=== PATIENT | female | born 2000 | race African-American/Black ===

== ENCOUNTER 2022-12-16 09:57 | Inpatient (IN) | payer OTHER, SELFPAY ==
[2022-12-16] VITALS (17 sets, daily range): BP systolic 119–133; BP diastolic 67–90; PULSE 85–162; RESP 18–30; TEMP 36.9–37.9; O2SAT 96–100
--- NOTE | ~2022-12-16 | XR_ITS ---
EXAMINATION: XR chest 1V portable INDICATION: Fever TECHNIQUE: Portable AP chest at 0528 hours COMPARISON: 12/16/2022 FINDINGS: The lung volumes are low. No pleural effusion or pneumothorax. The lungs are free of acute opacities. The cardiomediastinal silhouette is normal. IMPRESSION: 1. No acute cardiopulmonary abnormality. Reviewed, dictated and finalized at location A.
--- NOTE | ~2022-12-16 | XR_ITS ---
EXAMINATION: XR chest 1V portable DATE: 12/16/2022 14:50 INDICATION: Aspiration. TECHNIQUE: A single frontal view of the chest was obtained. COMPARISON: None. FINDINGS: The chest demonstrates clear lungs without pneumonia, pleural effusion, or pneumothorax. Th e heart size is normal. IMPRESSION: 1. No acute cardiopulmonary disease. Reviewed, dictated and finalized at location E.
--- NOTE | ~2022-12-16 | CT_ITS ---
Non-contrast Head CT History: Altered mental status Technique: Axial non-contrast imaging of the brain was performed. Dose reduction technique was used on this scan by utilizing automated exposure control and iterative reconstruction technique. The dose -length product (DLP) was 605.33 mGy-cm. Findings: There is no evidence of intracranial hemorrhage, mass lesion, or acute infarct. Brain par enchyma appears normal. The ventricles and subarachnoid spaces are normal in size. The calvarium ap pears normal. The visualized paranasal sinuses and mastoid air cells are clear. Impression: No significant abnormality seen. Reviewed, dictated and finalized at location . Impression: No significant abnormality seen.
--- NOTE | 2022-12-16 10:00 | ECG_ITS ---
Measurements Intervals [place] Rate: 160 P: 42 DE: 96 QRS: 79 QRSD: 73 T: 45 QT: 296 QTc: 483 Interpretive Statements SINUS TACHYCARDIA WITH SHORT DE INTERVAL NONSPECIFIC ST & T-WAVE ABNORMALITY ABNORMAL RHYTHM ECG NO PREVIOUS ECG AVAILABLE FOR COMPARISON Electronically Signed On 12-16-2022 11:57:54 CDT by Ryan Schafer M.D.
[2022-12-16] MEDS: SODIUM CHLORIDE 0.9% IV 1,000 ML 999 ML IV CONT (10:16)
--- NOTE | 2022-12-16 10:17 | PC.NURSE ---
Father states pt has episodes of syncope this year and had multiple cardiac work ups with nothing found. Father states the symptoms maybe associated with not eating. Mother and father states pt may have had the first seizure before mom's arrival. Unsure due to poor historians.
--- NOTE | 2022-12-16 10:30 | ED.GENADULT ---
HPI - General Adult General Chief complaint: Seizure Stated complaint: SEIZURE ? Time Seen by Provider: 12/16/22 10:00 History of Present Illness HPI narrative: 22-year-old female presented the emergency department for evaluation of multiple seizures today. This morning the patient's brother called mother and told her that he suspected the patient was having a seizure. When the mother arrived home the patient appeared to have a second seizure. Patient has no prior history of seizures. Mother states that she is her only lasted a few minutes but does describe tonic-clonic movements with sonorous respirations. Mother is unsure how long the seizure lasted because she was on the phone with EMS. When EMS arrived patient had no seizure activity but patient was postictal. They state the patient's postictal phase has been improving. Upon arrival to the ED patient is aware that she is in [place] and who her parents are but patient is still confused and is not fully verbal at this time. Patient was also tachycardic with a heart rate into the 170s Related Data Home Medications Medication Instructions Recorded Confirmed No Home Medications 12/16/22 12/16/22 Allergies Allergy/AdvReac Type Severity Reaction Status Date / Time No Known Allergies Allergy Verified 12/16/22 10:15 Review of Systems Review of Systems: All systems reviewed & are unremarkable except as noted in HPI and below PMFSH Social History Social History (Updated 12/16/22 @ 14:00 by Simeon Hair MD) Social History: Denies smoking alcohol use and drug use at this time. Admits to using marijuana in the past. Works in a warehouse Smoking status: Never smoker Alcohol intake: never Substance use: never Substance use type: does not use Spiritual care concerns: No Exam Narrative: APPEARANCE: Confused appearing. HEAD: normocephalic, atraumatic. EYES: PERRLA/EOMI, conjunctivae clear. NOSE: Normal no drainage EARS:TMS clear with good light reflex. THROAT: Pharynx clear, no exudate. NECK: Supple. No adenopathy, no masses. RESPIRATORY: Airway patent, respirations nonlabored. Clear to auscultation bilaterally, no rales, rhonchi, wheezing. CARDIOVASCULAR: Regular rate and rhythm without murmurs rubs or gallops. ABDOMINAL: Soft, nontender, nondistended, normal bowel sounds MUSCULOSKELETAL: Moves all extremities. Strength/ROM intact, No edema, No calf tenderness. NEURO: Alert but confused. Cranial nerves II through XII intact. Grossly intact SKIN: Warm, dry. Normal Color Course Course Emergency Course: 22-year-old female presenting for evaluation of seizure. Case was discussed with Dr. Case and due to the concern for multiple seizures today she was comfortable with the plan to start a 20 mL/kg Keppra loading dose. Patient's heart rate was in the 170s when she arrived to the ED. Patient was treated with IV fluids and did have a significant improvement of her heart rate. Patient did have pink residue on her lips and on her chest after emesis. Ultimately patient did admit that she did take Benadryl and family did provide a suicide note along with an empty bottle of Benadryl. Benadryl overdose does match her clinical findings of tachycardia, dry mouth and seizures. Family was updated on the results of the work-up and plan for admission. At time of admission patient's heart rate had improved. Case was discussed with the sergeant at arms and patient was admitted to the ICU. Case was also discussed with the hospitalist and patient was accepted for admission. Vital Signs Vital signs: Vital Signs Temperature 98.5 F 12/16/22 09:57 Pulse Rate 162 H 12/16/22 09:57 Respiratory Rate 30 H 12/16/22 09:57 Blood Pressure 121/73 12/16/22 09:57 Pulse Oximetry 96 12/16/22 09:57 Oxygen Delivery Room Air 12/16/22 09:57 Temperature 100.3 F H 12/16/22 18:00 Pulse Rate 99 12/16/22 18:00 Respiratory Rate 20 12/16/22 18:00 Blood Pressu
[2022-12-16 10:31] LABS: Basophils Percent Auto 0.2 % (0.2-1.2); Hematocrit 42.3 % (37.0-47.0); Hemoglobin 13.3 g/dL (12.0-15.0); Immature Granulocyte Absolute 0.06 K/mm3 (0.00-0.031); Immature Granulocyte Percent A 0.3 % (0-0.5); Lymphocytes Absolute Auto 1.23 K/mm3 (0.9-3.2); Mean Corpuscular HGB Conc 31.4 g/dl (32-36); Mean Corpuscular Hemoglobin 23.3 pg (26-34); Mean Corpuscular Volume 74.2 fl (80-100); Mean Platelet Volume 12.1 fl (7.4-10.4); Monocytes Absolute Auto 0.6 K/mm3 (0.1-0.6); Monocytes Percent Auto 3.5 % (2.6-8.5); Neutrophils Absolute Auto 15.5 K/mm3 (1.3-6.7); Platelet Count Result 399 k/mm3 (150-375); Red Cell Distribution Width 15.2 % (11.5-14.5); White Blood Count 17.5 K/mm3 (4.5-10.0)
[2022-12-16 10:32] LABS: Alveolar/Arterial O2 Gradient 67.4 mmHg; Base Excess ABG -8.6 mEq/l (+/-2.0); Fractional Inspired Oxygen 21 %; HCO3 ABG 15.5 mEq/l (22.0-26.0); PCO2 ABG 28.5 mmHg (35.0-45.0); Total Hemoglobin 13.7 g/dL (12.0-18.0); pH ABG 7.352 (7.350-7.450)
[2022-12-16 10:34] LABS: PO2 ABG 48.2 mmHg (80.0-100.0)
[2022-12-16 10:35] LABS: Modified Allen's Test Pass; Oxygen Saturation ABG 82.9 % (95.0-100.0); Oxyhemoglobin 83.3 % THb (90.0-100.0); Site Drawn RIGHT RADIAL
[2022-12-16 10:41] LABS: Acetaminophen < 10 ug/mL (10-30); Ethanol < 10 mg/dL (<10); INR 1.1; Partial Thromboplastin Time 27.7 SECONDS (22.3-36.8); Prothrombin Time 14.4 Seconds (11.1-14.7); Salicylate < 1.0 mg/dL (2-20)
[2022-12-16 10:52] LABS: Alanine Aminotransferase 51 U/L (6-35); Albumin Level 5.2 g/dL (3.5-5.1); Alkaline Phosphatase 90 U/L (38-126); Anion Gap 25 mmol/L (8-16); Aspartate Amino Transferase 40 U/L (14-36); Bilirubin,Total 0.5 mg/dL (0.2-1.3); Blood Urea Nitrogen 7 mg/dL (7-17); Calcium 9.7 mg/dL (8.4-10.2); Carbon Dioxide 13 mmol/L (22-30); Chloride 104 mmol/L (98-107); Estimated CRCL calculation 90 ml/min; Estimated Glomerular Filt Rate > 60; Glucose 141 mg/dL (65-110); Magnesium 2.1 mg/dL (1.6-2.3); Potassium 3.9 mmol/L (3.4-5.0); Sodium 142 mmol/L (137-145)
[2022-12-16 11:04] LABS: Ovalocytes 1+ (NORMAL); Platelet Estimate Adequate (Adequate)
[2022-12-16 11:08] LABS: Anisocytosis 1+ (NORMAL); Crenated RBC 2+ (NORMAL); Poikilocytosis 2+ (NORMAL)
[2022-12-16 11:09] LABS: Amphetamine Screen Urine Negative (Negative); Appearance Urine Clear (Clear); Bacteria Urine None Seen /hpf; Barbiturate Screen Urine Negative (Negative); Benzodiazepines Screen Urine Negative (Negative); Bilirubin Urine Negative (Negative); Blood Urine Negative (Negative); Cannabinoid Screen Urine Negative (Negative); Cocaine Screen Urine Negative (Negative); Color Urine Yellow (Yellow); Glucose Urine UA Negative (Negative); Ketones Urine Trace mg/dL (Negative); Leukocyte Esterase Ur Negative LEU/UL (Negative); Methadone Screen Urine Negative (Negative); Nitrate Urine Negative (Negative); Non Pathogenic Casts 0-2; Opiate Screen Urine Negative (Negative); Phencyclidine Screen Urine Negative (Negative); Protein Urine 2+ mg/dL (Negative); RBC Urine 0-2 /hpf (0-2); Squamous Epithelial Cell Urine None seen /hpf (Few); Urobilinogen Urine 0.2 mg/dL (<2.0); WBC Urine 0-5 /hpf
[2022-12-16 11:09] LABS: Schistocytes Rare (NORMAL)
[2022-12-16 11:10] LABS: Add Urine Microscopic? YES
--- NOTE | 2022-12-16 11:20 | PC.NURSE ---
report received from Anais ZAVALETA at this time
[2022-12-16 11:30] LABS: Lactic Acid Reflex 4.1 mmol/L (0.7-2.0)
--- NOTE | 2022-12-16 12:17 | PC.NURSE ---
patient found to be incontinent at this time. Complete linen bed changed at this time. Small pink flakes and fragments found all over bed and in patient's hair. Dr Kelly notified.
--- NOTE | 2022-12-16 13:06 | PC.NURSE ---
Patient's father told this nurse that an empty bottle of benadryl was found at patient's residence. Patient admits to taking something to get high but won't admit to what substance was ingested. patient denies SI/HI or trying to harm herself in any way. Dr Kelly notified
--- NOTE | 2022-12-16 13:41 | PM.IMHP ---
H&P: HPI History of Present Illness Date/Time: 12/16/22 14:45 Chief Complaint: Seizure-like activity. Narrative: This is a 22-year-old female with no reported medical history who presented to the emergency department via EMS from home for evaluation of seizure-like activity. The patient is somnolent at the time my evaluation and she does answer some questions however some of the following history is obtained via a review of her electronic medical records as well as discussions with the patient's mother who is at bedside, with the patient's permission. The patient got home from work at about 20:00 last night and she seemed okay at that time. Mother went to bed and sometime this morning the patient's brother alerted the mother to the fact that the patient seemed to be having convulsions. Mother reports that the patient was lying on the couch and seemed to have vomited a pretty large amount of pink colored emesis sometime overnight. She witnessed the patient having will was described as tonic clonic like movements with sonorous respirations, lasting approximately 45 seconds. On EMS arrival she was awake and alert to self only seemed to be postictal. She has no history of seizure disorder and there was no evidence of trauma on exam. She does not drink alcohol or do drugs, according to family members. In the ED the patient admitted that she took some Benadryl in an attempt to harm herself. Father went home and found that she had spent 9 dollars at [employer] yesterday and appeared that she had purchase a bottle of generic diphenhydramine, 25 mg tablets. There were reportedly 100 tablets in the bottle and all of them were missing. Mother found a note at the patient had written at 21:22 last night, stating that she was sorry. She has no reported history of depression or suicide attempt. On arrival to the ED her blood pressure was stable, she has been persistently tachycardic, and her temperature has been as high as 100.3?. Pertinent labs include a white blood cell count of 17.5, sodium 142, potassium 3.9, carbon dioxide 13, anion gap 25, lactic acid 4.1, AST 40, ALT 51, total CK 7815. Urine drug screen was negative. Salicylate, acetaminophen, and ethyl alcohol levels were undetectable. Brain CT and chest x-ray showed no acute findings. At the time my evaluation she has no complaints but seems confused. Review of Systems Review of Systems: Unable to be obtained accurately she is confused. FORMERLY [facility], [facility] Past Medical History Medical History (Updated 12/16/22 @ 23:41 by Cherry Juarez PA-C) No pertinent past medical history Surgical History Surgical History (Updated 12/16/22 @ 23:34 by Cherry Juarez PA-C) No history of previous surgery Family History Family History (Updated 12/16/22 @ 23:34 by Cherry Juarez PA-C) Other Family history unknown Social History Social History (Updated 12/16/22 @ 23:34 by Cherry Juarez PA-C) Social History: Lives with father in [place]. 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 Admits to using marijuana in the past. Spiritual care concerns: No Meds Home Medications and Allergies Home Medications Medication Instructions Recorded Confirmed Type No Home Medications 12/16/22 12/16/22 History Allergies Allergy/AdvReac Type Severity Reaction Status Date / Time No Known Allergies Allergy Verified 12/16/22 10:15 Vital Signs Vital Signs - 24 hr 12/16/22 09:57 12/16/22 10:07 12/16/22 11:26 Temperature 98.5 F Pulse Rate 162 H 158 H 113 H Respiratory Rate 30 H 18 Blood Pressure 121/73 133/76 Pulse Oximetry 96 97 Oxygen Delivery Room Air 12/16/22 10:09 12/16/22 10:24 12/16/22 10:57 Temperature Pulse Rate 157 H 155 H 128 H Respiratory Rate Blood Pressure 132/75 Pulse Oximetry Oxygen Delivery 12/16/22 11:00 12/16/22 11:57 12/16/22 12:00 Temperature Pulse Rate 133 H 110 H 108 H Respiratory Rate
--- NOTE | 2022-12-16 14:00 | WPDCNINT ---
Assessment and Plan Assessment and plan (1) Intentional diphenhydramine poisoning: Code(s): T45.0X2A - Poisoning by antiallergic and antiemetic drugs, intentional self-harm, initial encounter Status: Acute Assessment and Plan: Patient admits to taking 30 pills of Benadryl although empty 100 pill bottle was found in her car along with a note that appears to be a suicide note. The timing of pill ingestion is unknown although the note was timed at 9:22 p.m. last night. She presented with clinical picture which is consistent with diphenhydramine poisoning as she has dry mouth, mydriasis, tachycardia and seizures Continue supportive care IV fluids Patient received Keppra for seizures which will be continued EKG reviewed and shows normal QTC and QRS Suicide and seizure precaution (2) Generalized seizure: Code(s): R56.9 - Unspecified convulsions Status: Acute Assessment and Plan: Secondary to diphenhydramine toxicity Patient was given Keppra loading dose in the ER be continued Head CT was negative Neurology was consulted in the ER Seizure precautions P.r.n. Ativan IV fluids NPO (3) Encephalopathy: Code(s): G93.40 - Encephalopathy, unspecified Status: Acute Assessment and Plan: Patient is awake alert but confused Likely secondary to Benadryl and postictal from seizures Avoid sedatives Monitor Head CT was unremarkable (4) Lactic acidosis: Code(s): E87.20 - Acidosis, unspecified Status: Acute Assessment and Plan: Likely secondary to seizures Patient received IV fluid bolus Recheck level after fluid bolus (5) Suicide attempt: Code(s): T14.91XA - Suicide attempt, initial encounter Status: Acute Assessment and Plan: Suicide precautions and one-to-one sitter Will have Psychiatry evaluate once medical issues are resolved (6) Hypoxia: Code(s): R09.02 - Hypoxemia Status: Acute Assessment and Plan: Initial ABG showed hypoxia. Patient currently on room air Will check chest x-ray to evaluate for any aspiration Plan DVT prophylaxis -SCDs Code Status - Full Code Patient's father updated at bedside Total Critical Care Time - 35 minutes Due to a high probability of clinically significant, life threatening deterioration, the patient required my highest level of preparedness to intervene emergently and I personally spent this critical care time directly and personally managing the patient. This critical care time included obtaining a history; examining the patient; pulse oximetry; ordering and review of studies; arranging urgent treatment with development of a management plan; evaluation of patient's response to treatment; frequent reassessment; and discussions with other providers. It was exclusive of separately billable procedures and treating other patients and teaching time. Please see Assessment and Plan section and the rest of the note for further information on patient assessment and treatment Press Puller Consult Note Consult date: 12/16/22 Reason for consult: Seizures, Benadryl overdose, suicide attempt HPI: Kate Nichole is a 22 year old female with no significant past medical history who was brought to ER with seizures. Her younger brother found her on the floor this morning with foam on the side of her mouth and called her mother. Her mother witnessed a generalized tonic-clonic seizure and she called 911. When EMS arrived patient did not had any active seizures but was confused postictal which improved by the time patient was brought to ER. Patient in ER was awake but confused. She was tachycardic and was given IV fluids. After consultation with Neurology she was given Keppra loading dose. Her mother found empty bottle of 100 pills of 25 mg Benadryl in her car along with note that appears to be suicide note and was timed at 9:22 p.m. last night. Patient was apparently at baseline yesterday. Initially during my interv
[2022-12-16 14:06] LABS: Reflex Lactic Acid Yes or No Add Lactic
[2022-12-16 14:38] LABS: Lactic Acid 1.8 mmol/L (0.7-2.0)
[2022-12-16 14:51] LABS: Anion Gap 11 mmol/L (8-16); Blood Urea Nitrogen 7 mg/dL (7-17); Carbon Dioxide 21 mmol/L (22-30); Chloride 107 mmol/L (98-107); Estimated CRCL calculation 101 ml/min; Estimated Glomerular Filt Rate > 60; Glucose 86 mg/dL (65-110); Potassium 3.9 mmol/L (3.4-5.0); Sodium 139 mmol/L (137-145)
[2022-12-16 14:59] LABS: Creatine Kinase 7815 U/L (30-135)
--- NOTE | 2022-12-16 15:00 | ADMGEN ---
This patient, Kate Nichole, was admitted to Intensive Care Unit-3. Patient/family oriented to hospital policies and general routines including ID bracelet, bed and alarms, visiting hours, pain management, procedures, bathroom and other care routines, personal items, smoking policy, room service/diet, and visiting hours. Information on how to activate the Rapid Response Team has been discussed. Patient/Family are encouraged to report perceived risks to care and to ask questions if they do not understand what they are told or what they should do.
[2022-12-16] MEDS: LACTATED RINGERS 1,000 ML 100 ML IV CONT (15:45)
[2022-12-16] MEDS: LACTATED RINGERS 1,000 ML 999 ML IV CONT (15:55)
[2022-12-16 17:23] LABS: Basophils Percent Auto 0.1 % (0.2-1.2); Eosinophils Percent Auto 0.1 % (0-4.4); Hematocrit 35.4 % (37.0-47.0); Hemoglobin 11.2 g/dL (12.0-15.0); Immature Granulocyte Absolute 0.06 K/mm3 (0.00-0.031); Immature Granulocyte Percent A 0.4 % (0-0.5); Lymphocytes Absolute Auto 2.02 K/mm3 (0.9-3.2); Lymphocytes Percent Auto 11.8 % (18.3-44.2); Mean Corpuscular HGB Conc 31.6 g/dl (32-36); Mean Corpuscular Hemoglobin 23.1 pg (26-34); Mean Platelet Volume 12.6 fl (7.4-10.4); Monocytes Absolute Auto 1.1 K/mm3 (0.1-0.6); Monocytes Percent Auto 6.3 % (2.6-8.5); Neutrophils Absolute Auto 13.9 K/mm3 (1.3-6.7); Neutrophils Percent Auto 81.3 % (45.5-73.1); Platelet Count Result 317 k/mm3 (150-375); Red Blood Count 4.85 M/mm3 (4.2-5.4); Red Cell Distribution Width 14.6 % (11.5-14.5); White Blood Count 17.1 K/mm3 (4.5-10.0)
[2022-12-16 17:26] LABS: Lactic Acid Reflex 1.5 mmol/L (0.7-2.0)
[2022-12-16 17:50] LABS: Alanine Aminotransferase 43 U/L (6-35); Albumin Level 4.3 g/dL (3.5-5.1); Alkaline Phosphatase 78 U/L (38-126); Anion Gap 8 mmol/L (8-16); Aspartate Amino Transferase 156 U/L (14-36); Bilirubin,Total 0.8 mg/dL (0.2-1.3); Blood Urea Nitrogen 6 mg/dL (7-17); Calcium 9.3 mg/dL (8.4-10.2); Carbon Dioxide 25 mmol/L (22-30); Chloride 107 mmol/L (98-107); Estimated CRCL calculation 103 ml/min; Estimated Glomerular Filt Rate > 60; Glucose 84 mg/dL (65-110); Magnesium 1.9 mg/dL (1.6-2.3); Phosphorus 4.5 mg/dL (2.5-4.5); Potassium 3.5 mmol/L (3.4-5.0); Sodium 140 mmol/L (137-145)
[2022-12-16 18:09] LABS: Anisocytosis 1+ (NORMAL); Microcytosis 1+ (NORMAL); Platelet Estimate Adequate (Adequate); Schistocytes None Seen (NORMAL)
[2022-12-16 18:10] LABS: Ovalocytes 1+ (NORMAL)
[2022-12-16 18:22] LABS: Creatine Kinase > 16000 U/L (30-135)
[2022-12-16] MEDS: KCL 20 MEQ/0.45% NS 1,000 ML 125 ML IV CONT (19:16)
[2022-12-16] MEDS: levETIRAcetam 500MG/NACL 100ML 500 MG/100 ML BAG 400 MG IVPB (20:33)
[2022-12-17] VITALS (19 sets, daily range): BP systolic 104–129; BP diastolic 56–75; PULSE 79–111; RESP 14–21; TEMP 36.8–38.2; O2SAT 97–100
[2022-12-17] MEDS: KCL 20 MEQ/0.45% NS 1,000 ML 125 ML IV CONT (03:35)
[2022-12-17 03:37] LABS: Basophils Absolute Auto 0.1 K/mm3 (0.0-0.1); Basophils Percent Auto 0.4 % (0.2-1.2); Eosinophils Absolute Auto 0.1 K/mm3 (0-0.3); Eosinophils Percent Auto 0.7 % (0-4.4); Hematocrit 32.4 % (37.0-47.0); Hemoglobin 10.5 g/dL (12.0-15.0); Immature Granulocyte Absolute 0.05 K/mm3 (0.00-0.031); Immature Granulocyte Percent A 0.4 % (0-0.5); Lymphocytes Absolute Auto 2.66 K/mm3 (0.9-3.2); Lymphocytes Percent Auto 21.9 % (18.3-44.2); Mean Corpuscular HGB Conc 32.4 g/dl (32-36); Mean Corpuscular Hemoglobin 23.9 pg (26-34); Mean Corpuscular Volume 73.6 fl (80-100); Mean Platelet Volume 12.9 fl (7.4-10.4); Monocytes Absolute Auto 0.8 K/mm3 (0.1-0.6); Monocytes Percent Auto 6.3 % (2.6-8.5); Neutrophils Absolute Auto 8.5 K/mm3 (1.3-6.7); Neutrophils Percent Auto 70.3 % (45.5-73.1); Platelet Count Result 316 k/mm3 (150-375); Red Cell Distribution Width 14.8 % (11.5-14.5); White Blood Count 12.1 K/mm3 (4.5-10.0)
[2022-12-17 04:57] LABS: Alanine Aminotransferase 48 U/L (6-35); Albumin Level 3.8 g/dL (3.5-5.1); Alkaline Phosphatase 63 U/L (38-126); Anion Gap 4 mmol/L (8-16); Aspartate Amino Transferase 189 U/L (14-36); Bilirubin,Total 0.9 mg/dL (0.2-1.3); Blood Urea Nitrogen 9 mg/dL (7-17); Calcium 8.5 mg/dL (8.4-10.2); Carbon Dioxide 26 mmol/L (22-30); Chloride 110 mmol/L (98-107); Estimated CRCL calculation 93 ml/min; Estimated Glomerular Filt Rate > 60; Glucose 79 mg/dL (65-110); Potassium 4.1 mmol/L (3.4-5.0); Sodium 140 mmol/L (137-145)
[2022-12-17 05:23] LABS: Creatine Kinase > 16000 U/L (30-135)
[2022-12-17] MEDS: LACTATED RINGERS 1,000 ML 999 ML IV CONT (05:30)
[2022-12-17 07:24] LABS: Hypochromasia 1+ (NORMAL); Microcytosis 1+ (NORMAL); Ovalocytes 1+ (NORMAL); Platelet Estimate Adequate (Adequate); Schistocytes None Seen (NORMAL)
[2022-12-17] MEDS: levETIRAcetam 500MG/NACL 100ML 500 MG/100 ML BAG 400 MG IVPB ×2 (08:23→21:56)
[2022-12-17] MEDS: LACTATED RINGERS 1,000 ML 200 ML IV CONT (08:24)
[2022-12-17 08:52] LABS: Glucose Point of Care 71 mg/dl (65-105)
--- NOTE | 2022-12-17 09:03 | WPDINTPN ---
Progress Note: A&P Assessment and Plan (1) Rhabdomyolysis: Code(s): M62.82 - Rhabdomyolysis Status: Acute Assessment and Plan: Secondary to laying on the floor Patient is symptomatic Continue IV fluids Monitor CK level (2) Intentional diphenhydramine poisoning: Qualifiers: Encounter type: initial encounter Qualified Code(s): T45.0X2A - Poisoning by antiallergic and antiemetic drugs, intentional self-harm, initial encounter Code(s): T45.0X2A - Poisoning by antiallergic and antiemetic drugs, intentional self-harm, initial encounter Status: Acute Assessment and Plan: Patient admitted to taking 30 pills of Benadryl although empty 100 pill bottle was found in her car along with a note that appears to be a suicide note. The timing of pill ingestion is unknown although the note was timed at 9:22 p.m. night before. She presented with clinical picture which is consistent with diphenhydramine poisoning as she has dry mouth, mydriasis, tachycardia and seizures Patient is clinically improved Continue supportive care IV fluids Patient received Keppra for seizures which is being continued EKG reviewed and shows normal QTC and QRS Suicide and seizure precaution (3) Generalized seizure: Code(s): R56.9 - Unspecified convulsions Status: Acute Assessment and Plan: Secondary to diphenhydramine toxicity Patient was given Keppra loading dose in the ER and was continued Head CT was negative Neurology was consulted in the ER Seizure precautions and will seizure since admission P.r.n. Ativan ordered IV fluids (4) Encephalopathy: Code(s): G93.40 - Encephalopathy, unspecified Status: Acute Assessment and Plan: Resolved patient is awake alert and oriented now Likely secondary to Benadryl and postictal from seizures Avoid sedatives Monitor Head CT was unremarkable (5) Lactic acidosis: Code(s): E87.20 - Acidosis, unspecified Status: Acute Assessment and Plan: Likely secondary to seizures Resolved with IV fluids (6) Suicide attempt: Code(s): T14.91XA - Suicide attempt, initial encounter Status: Acute Assessment and Plan: Suicide precautions and one-to-one sitter Will have Psychiatry evaluate once medical issues are resolved (7) Hypoxia: Code(s): R09.02 - Hypoxemia Status: Acute Assessment and Plan: Initial ABG showed hypoxia. Patient currently on room air chest x-ray was negative for any signs of aspiration Plan DVT prophylaxis -SCDs Code Status - Full Code Patient's father updated at bedside Advance diet Downgrade to step-down unit Incentive spirometer Subjective Date/time seen: 12/17/22 Feels better. Denies any complaint. Alert awake this morning Patient denies fever, chest pain, shortness of breath, cough, nausea vomiting, abdominal pain,, diarrhea, headache or constipation. No muscle aches joint pains no blurring of vision.. All other systems were reviewed and negative Afebrile. On room air. S sinus rhythm on the monitor Adequate urine output No seizures overnight Review of Systems Review of Systems: All systems reviewed & are unremarkable except as noted in HPI and below (HPI) Exam Narrative: General: Pt is awake alert and in NAD Lungs/Chest: Trachea central Clear BS B/L, No crackles or wheezing. Cardiac: RRR. Normal S1 S2. No murmurs Circulation: Pedal pulses are intact and symmetrical. Abdomen: Normal bowel sounds.. Soft. NT. ND. Extremities: No clubbing, cyanosis or edema. Warm : Valle in place Neurologic: Patient AO x3 follows commands. Moves all 4 extremities P pupils are equal, with round and reactive to light Skin: No Rash HEENT: Pupils are mildly dilated reactive light, dry mouth has resolved Objective Data Vital Signs Vital Signs: Vital Signs - 24 hr 12/16/22 09:57 12/16/22 10:07 12/16/22 11:26 Temperature 36.9 C Pulse Rate
--- NOTE | 2022-12-17 10:27 | ECG_ITS ---
Measurements Intervals [place] Rate: 90 P: 62 MI: 152 QRS: 69 QRSD: 76 T: 51 QT: 338 QTc: 414 Interpretive Statements SINUS RHYTHM WITH MARKED SINUS ARRHYTHMIA COMPARED TO ECG 12/16/2022 10:13:00 SINUS RHYTHM NOW PRESENT SINUS ARRHYTHMIA NOW PRESENT Electronically Signed On 12-17-2022 11:07:28 CDT by Ryan Schafer M.D.
--- NOTE | 2022-12-17 10:34 | PC.NURSE ---
Spoke with poison control and talked to Mili. Mili is requesting an ekg to see if qtc is trending down, continue keppra as needed and would request abg in AM if decides.
[2022-12-17 12:03] LABS: Glucose Point of Care 73 mg/dl (65-105)
[2022-12-17] MEDS: LACTATED RINGERS 1,000 ML 150 ML IV CONT ×2 (13:06→21:55)
--- NOTE | 2022-12-17 14:29 | WPDNEURCNPN ---
Assessment and Plan Assessment and plan (1) Seizure: Code(s): R56.9 - Unspecified convulsions Status: Acute (2) Diphenhydramine overdose: Qualifiers: Encounter type: initial encounter Injury intent: intentional self-harm Qualified Code(s): T45.0X2A - Poisoning by antiallergic and antiemetic drugs, intentional self-harm, initial encounter Code(s): T45.0X1A - Poisoning by antiallergic and antiemetic drugs, accidental (unintentional), initial encounter Status: Acute (3) Suicide attempt: Code(s): T14.91XA - Suicide attempt, initial encounter Status: Acute (4) Rhabdomyolysis: Code(s): M62.82 - Rhabdomyolysis Status: Acute Plan Ms. Nichole is a 22 year old female with no significant past medical history who had a seizure in the setting of intentional Benadryl overdose. She has not had any additional seizures since admission and her mental status is back to baseline. Seizure appears to be provoked. - No EEG is needed unless subsequent seizure were to occur - Maintenance Keppra does not need to be continued after discharge unless she were to have additional seizures Consult date: 12/17/22 Reason for consult: Seizure HPI: Kate Nichole is a 22 year old female with no significant past medical history who presented with seizure in the setting of intentional orverdose. Patient was found to be having convulsions by her brother. She also had an episode of emesis that was noted, presumably before the seizure. The entire seizure lasted about 45 seconds. EMS was called and on their arrival she was awake and oriented to only herself, and appeared to be confused. There is no prior history of seizures in patient and no family history of seizures. When patient was taken to the ED, she admitted to overdosing on Benadryl in an attempt to self harm. Father reported that she had purchased a new bottle of generic diphenhydramine (25mg tablets), and all 100 tablets were missing from the bottle. She had also written a suicide note that was found by mother. Her CK was elevated on presentation to 7815. Her UDS was negative and rest of tox screen was negative as well. CT head was normal. She has not had any additional seizures since admission. She did receive a loading dose of Keppra in the ED. She is currently receiving maintenance Keppra while admitted. CK level has been >98000 the past two days. Review of Systems Constitutional: Constitutional: Reports no additional constitutional complaints Eyes: Eyes: Reports no additional eye complaints ENT: Reports system reviewed and no additional complaints, except as documented Cardiovascular: Cardiovascular: Reports no additional cardiovascular complaints Respiratory: Respiratory: Reports no additional respiratory complaints Gastrointestinal: Gastrointestinal: Reports no additional gastrointestinal complaints Genitourinary: Genitourinary: Reports no additional female genitourinary complaints Musculoskeletal: Musculoskeletal: Reports no additional musculoskeletal complaints Integumentary/Breasts: Skin/Breast: Reports system reviewed and no additional complaints, except as docu Neurologic: Reports system reviewed and no additional complaints, except as documented Psychiatric: Psychiatric: Reports suicidal ideation PMFSH Past Medical History Medical History No pertinent past medical history Surgical History Surgical History No history of previous surgery Family History Family History Other Family history unknown Social History Social History Social History: Lives with father in [place]. 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 Admits to using marijuana in the past. Spiritual care concerns
[2022-12-17] MEDS: ACETAMINOPHEN 325 MG TABLET 650 MG PO (15:38)
--- NOTE | 2022-12-17 18:17 | PM.IMPN ---
Progress Note: A&P Assessment and Plan (1) Rhabdomyolysis: Code(s): M62.82 - Rhabdomyolysis Status: Acute Assessment and Plan: Creatine kinase >85192 secondary to seizures and laying on the floor. Renal function remains normal. UA with no blood. Continue IV fluids Monitor CK levels (2) Intentional diphenhydramine poisoning: Qualifiers: Encounter type: initial encounter Qualified Code(s): T45.0X2A - Poisoning by antiallergic and antiemetic drugs, intentional self-harm, initial encounter Code(s): T45.0X2A - Poisoning by antiallergic and antiemetic drugs, intentional self-harm, initial encounter Status: Acute Assessment and Plan: Patient admitted to taking 30 pills of Benadryl although empty 100 pill bottle was found in her car along with a note that appears to be a suicide note. The timing of pill ingestion is unknown although the note was timed at 9:22 p.m. the night before. Clinical picture consistent with diphenhydramine poisoning (retention, dry mouth, mydriasis, tachycardia, seizures) ABG 7.35/28/48 on room air on admission. Now on room air. No need to repeat ABG Patient is clinically improved Continue supportive care IV fluids for rhabdo Patient received Keppra for seizures which is being continued EKG reviewed and shows normal QTC and QRS Suicide and seizure precaution Repeat EKG tomorrow Remove Valle in am. (3) Generalized seizure: Code(s): R56.9 - Unspecified convulsions Status: Acute Assessment and Plan: Patient had 2 witnessed seizures at home. Secondary to diphenhydramine toxicity Patient was given Keppra loading dose in the ER and this was continued CT Brain was unremarkable Neurology was consulted and appreciate their input Seizure precautions Continue Keppra while hospitalized but stop as discharge unless she has further seizures P.r.n. Ativan available (4) Fever: Code(s): R50.9 - Fever, unspecified Status: Acute Assessment and Plan: Low grade fever on admission that has persisted today. CXR clear on admission. UA showing proteinuria but probably related to the seizure o/w urine clear. WBC 17K on admission but trending down now. She was obtunded with seizure so consider aspiration. Will repeat CXR. (5) Encephalopathy: Code(s): G93.40 - Encephalopathy, unspecified Status: Acute Assessment and Plan: Patient was altered on admission. Brain CT showing no acute intracranial abnormalities Patient is alert and oriented now [place] related to being post-ictal from the seizures and from the Benadryl Resolved. Continue to monitor (6) Lactic acidosis: Code(s): E87.20 - Acidosis, unspecified Status: Acute Assessment and Plan: lactic acid 4.1 likely secondary to seizures. Resolved with IV fluids (7) Suicide attempt: Code(s): T14.91XA - Suicide attempt, initial encounter Status: Acute Assessment and Plan: Suicide precautions and one-to-one sitter Care coordination to arrange for inpatient psychiatric placement once stable (8) Hypoxia: Code(s): R09.02 - Hypoxemia Status: Acute Assessment and Plan: Initial ABG showed hypoxia. Patient currently on room air chest x-ray was negative for any signs of aspiration Repeat CXR since still having fever. Plan DVT prophylaxis -SCDs Code Status - Full Code Diet - regular Subjective Date/time seen: 12/17/22 18:17 Interval history: 22yo healthy female here for intentional Benadryl overdose and provoked seizures. She admits to taking excessive Benadryl (up to 30 tablets) in a suicide attempt because she has been 'feeling sad'. No prior suicide attempts. Did tell her parents and her doctor. They have been trying to get her an appointment with a counselor. Urine retention of 900mL yesterday. Exam Narrative: Tm 100.7 100.2 110/66 107 17 100% ra Gen - NARD Chest - CTA
[2022-12-18] VITALS (14 sets, daily range): BP systolic 99–125; BP diastolic 53–83; PULSE 67–111; RESP 14–20; TEMP 37.1–37.3; O2SAT 97–100
[2022-12-18 04:02] LABS: Alanine Aminotransferase 50 U/L (6-35); Albumin Level 3.5 g/dL (3.5-5.1); Alkaline Phosphatase 75 U/L (38-126); Anion Gap 4 mmol/L (8-16); Aspartate Amino Transferase 136 U/L (14-36); Bilirubin,Total 0.5 mg/dL (0.2-1.3); Blood Urea Nitrogen 9 mg/dL (7-17); Calcium 8.4 mg/dL (8.4-10.2); Carbon Dioxide 27 mmol/L (22-30); Chloride 105 mmol/L (98-107); Estimated CRCL calculation 134 ml/min; Estimated Glomerular Filt Rate > 60; Glucose 99 mg/dL (65-110); Magnesium 1.8 mg/dL (1.6-2.3); Sodium 136 mmol/L (137-145)
[2022-12-18 04:50] LABS: Basophils Percent Auto 0.5 % (0.2-1.2); Eosinophils Absolute Auto 0.3 K/mm3 (0-0.3); Eosinophils Percent Auto 3.7 % (0-4.4); Hematocrit 33.4 % (37.0-47.0); Hemoglobin 10.4 g/dL (12.0-15.0); Immature Granulocyte Absolute 0.02 K/mm3 (0.00-0.031); Immature Granulocyte Percent A 0.2 % (0-0.5); Immature Platelet Fraction Pct 5.3 % (0.9-11.2); Lymphocytes Absolute Auto 2.55 K/mm3 (0.9-3.2); Lymphocytes Percent Auto 28.9 % (18.3-44.2); Mean Corpuscular HGB Conc 31.1 g/dl (32-36); Mean Corpuscular Hemoglobin 23.1 pg (26-34); Mean Corpuscular Volume 74.1 fl (80-100); Mean Platelet Volume 13.1 fl (7.4-10.4); Monocytes Absolute Auto 0.5 K/mm3 (0.1-0.6); Monocytes Percent Auto 5.9 % (2.6-8.5); Neutrophils Absolute Auto 5.4 K/mm3 (1.3-6.7); Neutrophils Percent Auto 60.8 % (45.5-73.1); Platelet Count Result 237 k/mm3 (150-375); Red Blood Count 4.51 M/mm3 (4.2-5.4); Red Cell Distribution Width 14.6 % (11.5-14.5); White Blood Count 8.8 K/mm3 (4.5-10.0)
[2022-12-18 04:56] LABS: Creatine Kinase 11821 U/L (30-135)
[2022-12-18 05:55] LABS: Anisocytosis 1+ (NORMAL); Ovalocytes 1+ (NORMAL); Platelet Estimate Adequate (Adequate); Schistocytes None Seen (NORMAL)
[2022-12-18] MEDS: LACTATED RINGERS 1,000 ML 150 ML IV CONT ×3 (06:11→18:31)
--- NOTE | 2022-12-18 07:00 | ECG_ITS ---
Measurements Intervals [place] Rate: 76 P: 57 MA: 165 QRS: 53 QRSD: 85 T: 31 QT: 350 QTc: 396 Interpretive Statements SINUS RHYTHM WITH SINUS ARRHYTHMIA COMPARED TO ECG 12/17/2022 10:45:16 NO SIGNIFICANT CHANGES Electronically Signed On 12-18-2022 12:16:48 CDT by Ryan Schafer M.D.
[2022-12-18] MEDS: levETIRAcetam 500MG/NACL 100ML 500 MG/100 ML BAG 100 MG IVPB (08:17)
--- NOTE | 2022-12-18 13:41 | PC.NURSE ---
Spoke with Kimmie at poison control, gave updated labs and updated ekg results. Kimmie is signing off on case. Case closed.
--- NOTE | 2022-12-18 18:03 | PM.IMPN ---
Progress Note: A&P Assessment and Plan (1) Rhabdomyolysis: Code(s): M62.82 - Rhabdomyolysis Status: Acute Assessment and Plan: Creatine kinase >96752 secondary to seizures and laying on the floor. Renal function remains normal. UA with no blood. Elevated AST/ALT related to rhabdomyolysis TCK level trending down now Continue IV fluids Continue to monitor CK levels and LFTs (2) Intentional diphenhydramine poisoning: Qualifiers: Encounter type: initial encounter Qualified Code(s): T45.0X2A - Poisoning by antiallergic and antiemetic drugs, intentional self-harm, initial encounter Code(s): T45.0X2A - Poisoning by antiallergic and antiemetic drugs, intentional self-harm, initial encounter Status: Acute Assessment and Plan: Patient admitted to taking 30 pills of Benadryl although empty 100 pill bottle was found in her car along with a note that appears to be a suicide note. The timing of pill ingestion is unknown although the note was timed at 9:22 p.m. the night before. Clinical picture consistent with diphenhydramine poisoning (retention, dry mouth, mydriasis, tachycardia, seizures) ABG 7.35/28/48 on room air on admission. Now on room air. No need to repeat ABG EKG reviewed and shows normal QTC and QRS; repeat EKG again showing normal QTc and QRS IV fluids for rhabdo Patient received Keppra for seizures which is being continued Suicide and seizure precaution Valle removed and voiding well now. Patient is clinically improved Continue supportive care (3) Generalized seizure: Code(s): R56.9 - Unspecified convulsions Status: Acute Assessment and Plan: Patient had 2 witnessed seizures at home. Secondary to diphenhydramine toxicity Patient was given Keppra loading dose in the ER and continued CT Brain was unremarkable Neurology was consulted and appreciate their input Seizure precautions Continue Keppra while hospitalized but stop as discharge unless she has further seizures P.r.n. Ativan available (4) Fever: Code(s): R50.9 - Fever, unspecified Status: Acute Assessment and Plan: She was having low grade fever. CXR clear on admission. UA showing proteinuria but probably related to the seizure o/w urine clear. WBC 17K on admission but WBC normal now. She was obtunded with seizure so we considered aspiration PNA but repeat CXR still clear. Fever free x 24 hours now. Follow. (5) Encephalopathy: Code(s): G93.40 - Encephalopathy, unspecified Status: Acute Assessment and Plan: Patient was altered on admission. Brain CT showing no acute intracranial abnormalities Patient is alert and oriented now [place] related to being post-ictal from the seizures and from the Benadryl Resolved. Continue to monitor (6) Lactic acidosis: Code(s): E87.20 - Acidosis, unspecified Status: Acute Assessment and Plan: lactic acid 4.1 likely secondary to seizures. Resolved with IV fluids (7) Suicide attempt: Code(s): T14.91XA - Suicide attempt, initial encounter Status: Acute Assessment and Plan: Suicide precautions and one-to-one sitter Care coordination to arrange for inpatient psychiatric placement once TCK level improved (8) Hypoxia: Code(s): R09.02 - Hypoxemia Status: Acute Assessment and Plan: Initial ABG showed hypoxia related to above. chest x-ray was negative for any signs of aspiration Repeat CXR remains clear Patient currently on room air. Resolved Plan DVT prophylaxis -SCDs Code Status - Full Code Diet - regular Subjective Date/time seen: 12/18/22 18:03 Interval history: 22yo healthy female here for intentional Benadryl overdose and provoked seizures. No issues overnight. Valle out and voiding normally. No CP, SOB. No n/v. No abd or back pain. Exam Narrative: AF 98.8 99/53 86 17 100% ra Gen - NARD Chest - CTA bilaterally, n
[2022-12-18] MEDS: levETIRAcetam 500MG/NACL 100ML 500 MG/100 ML BAG 400 MG IVPB (21:04)
[2022-12-19] VITALS (15 sets, daily range): BP systolic 112–121; BP diastolic 58–80; PULSE 15–107; RESP 14–70; TEMP 36.6–37.3; O2SAT 95–100
[2022-12-19] MEDS: LACTATED RINGERS 1,000 ML 150 ML IV CONT ×3 (02:10→15:26)
[2022-12-19 04:40] LABS: Alanine Aminotransferase 59 U/L (6-35); Albumin Level 3.3 g/dL (3.5-5.1); Alkaline Phosphatase 69 U/L (38-126); Anion Gap 3 mmol/L (8-16); Aspartate Amino Transferase 111 U/L (14-36); Bilirubin,Total 0.5 mg/dL (0.2-1.3); Blood Urea Nitrogen 5 mg/dL (7-17); Calcium 8.1 mg/dL (8.4-10.2); Carbon Dioxide 28 mmol/L (22-30); Chloride 105 mmol/L (98-107); Estimated CRCL calculation 136 ml/min; Estimated Glomerular Filt Rate > 60; Glucose 91 mg/dL (65-110); Magnesium 1.6 mg/dL (1.6-2.3); Potassium 3.7 mmol/L (3.4-5.0); Sodium 136 mmol/L (137-145)
[2022-12-19 04:59] LABS: Creatine Kinase 6614 U/L (30-135)
[2022-12-19] MEDS: levETIRAcetam 500MG/NACL 100ML 500 MG/100 ML BAG 400 MG IVPB (08:18)
--- NOTE | 2022-12-19 17:34 | PM.IMPN ---
Progress Note: A&P Assessment and Plan (1) Rhabdomyolysis: Code(s): M62.82 - Rhabdomyolysis Status: Acute Assessment and Plan: Creatine kinase >31251 secondary to seizures and laying on the floor. Renal function remains normal. UA with no blood. Elevated AST/ALT related to rhabdomyolysis TCK level and LFTs trending down now Continue IV fluids Continue to monitor CK levels and LFTs (2) Intentional diphenhydramine poisoning: Qualifiers: Encounter type: initial encounter Qualified Code(s): T45.0X2A - Poisoning by antiallergic and antiemetic drugs, intentional self-harm, initial encounter Code(s): T45.0X2A - Poisoning by antiallergic and antiemetic drugs, intentional self-harm, initial encounter Status: Acute Assessment and Plan: Patient admitted to taking 30 pills of Benadryl although empty 100 pill bottle was found in her car along with a note that appears to be a suicide note. The timing of pill ingestion is unknown although the note was timed at 9:22 p.m. the night before. Clinical picture consistent with diphenhydramine poisoning (retention, dry mouth, mydriasis, tachycardia, seizures) ABG 7.35/28/48 on room air on admission. Now on room air. No need to repeat ABG EKG reviewed and shows normal QTC and QRS; repeat EKG again showing normal QTc and QRS IV fluids for rhabdo Patient received Keppra for seizures which is being continued Suicide and seizure precaution Valle removed and voiding well now. Patient is clinically improved Continue supportive care (3) Generalized seizure: Code(s): R56.9 - Unspecified convulsions Status: Acute Assessment and Plan: Patient had 2 witnessed seizures at home. Secondary to diphenhydramine toxicity Patient was given Keppra loading dose in the ER and continued CT Brain was unremarkable Neurology was consulted and appreciate their input Seizure precautions Continue Keppra while hospitalized but stop as discharge unless she has further seizures P.r.n. Ativan available (4) Fever: Code(s): R50.9 - Fever, unspecified Status: Acute Assessment and Plan: She was having low grade fever. CXR clear on admission. UA showing proteinuria but probably related to the seizure o/w urine clear. WBC 17K on admission but WBC normal now. She was obtunded with seizure so we considered aspiration PNA but repeat CXR still clear. Fever free x 48 hours now. Follow. (5) Encephalopathy: Code(s): G93.40 - Encephalopathy, unspecified Status: Acute Assessment and Plan: Patient was altered on admission. Brain CT showing no acute intracranial abnormalities Patient is alert and oriented now [place] related to being post-ictal from the seizures and from the Benadryl Resolved. Continue to monitor (6) Lactic acidosis: Code(s): E87.20 - Acidosis, unspecified Status: Acute Assessment and Plan: lactic acid 4.1 likely secondary to seizures. Resolved with IV fluids (7) Suicide attempt: Code(s): T14.91XA - Suicide attempt, initial encounter Status: Acute Assessment and Plan: Suicide precautions and one-to-one sitter Care coordination to arrange for inpatient psychiatric placement once TCK level improved (8) Hypoxia: Code(s): R09.02 - Hypoxemia Status: Acute Assessment and Plan: Initial ABG showed hypoxia related to above. chest x-ray was negative for any signs of aspiration Repeat CXR remains clear Patient currently on room air. Resolved Plan DVT prophylaxis -SCDs Code Status - Full Code Diet - regular Subjective Date/time seen: 12/19/22 17:34 Interval history: 22yo healthy female here for intentional Benadryl overdose and provoked seizures. No COmplaints. No KEY, chest pain, abd pain or back pain. Voiding well. Exam Narrative: AF 98.0 116/60 72 98% ra Gen - NARD Chest - CTA bilaterally, nml RR CV - RRR S
[2022-12-19] MEDS: levETIRAcetam 500 MG TABLET PO (20:12)
[2022-12-19 20:19] LABS: Glucose Point of Care 110 mg/dl (65-105)
[2022-12-20] VITALS (13 sets, daily range): BP systolic 110–138; BP diastolic 65–85; PULSE 51–110; RESP 14–18; TEMP 36.6–36.8; O2SAT 95–100
[2022-12-20] MEDS: LACTATED RINGERS 1,000 ML 150 ML IV CONT ×4 (00:57→22:24)
[2022-12-20 03:57] LABS: Basophils Percent Auto 0.4 % (0.2-1.2); Eosinophils Absolute Auto 0.3 K/mm3 (0-0.3); Eosinophils Percent Auto 3.9 % (0-4.4); Hematocrit 32.9 % (37.0-47.0); Hemoglobin 10.6 g/dL (12.0-15.0); Immature Granulocyte Absolute 0.02 K/mm3 (0.00-0.031); Immature Granulocyte Percent A 0.2 % (0-0.5); Immature Platelet Fraction Pct 5.8 % (0.9-11.2); Lymphocytes Absolute Auto 2.62 K/mm3 (0.9-3.2); Lymphocytes Percent Auto 32.3 % (18.3-44.2); Mean Corpuscular HGB Conc 32.2 g/dl (32-36); Mean Corpuscular Hemoglobin 23.6 pg (26-34); Mean Corpuscular Volume 73.1 fl (80-100); Mean Platelet Volume 13.2 fl (7.4-10.4); Monocytes Absolute Auto 0.4 K/mm3 (0.1-0.6); Monocytes Percent Auto 5.2 % (2.6-8.5); Neutrophils Absolute Auto 4.7 K/mm3 (1.3-6.7); Platelet Count Result 245 k/mm3 (150-375); Red Cell Distribution Width 14.3 % (11.5-14.5); White Blood Count 8.1 K/mm3 (4.5-10.0)
[2022-12-20 04:11] LABS: Alanine Aminotransferase 53 U/L (6-35); Albumin Level 3.5 g/dL (3.5-5.1); Alkaline Phosphatase 68 U/L (38-126); Anion Gap 5 mmol/L (8-16); Aspartate Amino Transferase 84 U/L (14-36); Bilirubin,Total 0.4 mg/dL (0.2-1.3); Blood Urea Nitrogen 4 mg/dL (7-17); Calcium 8.6 mg/dL (8.4-10.2); Carbon Dioxide 26 mmol/L (22-30); Chloride 106 mmol/L (98-107); Estimated CRCL calculation 161 ml/min; Estimated Glomerular Filt Rate > 60; Glucose 93 mg/dL (65-110); Magnesium 1.6 mg/dL (1.6-2.3); Potassium 3.7 mmol/L (3.4-5.0); Sodium 137 mmol/L (137-145)
[2022-12-20 04:55] LABS: Creatine Kinase 4110 U/L (30-135)
[2022-12-20] MEDS: levETIRAcetam 500 MG TABLET PO ×2 (08:12→20:33)
[2022-12-20] MEDS: FUROSEMIDE INJ 40 MG/4 ML VIAL 20 MG IV PUSH (08:13)
--- NOTE | 2022-12-20 12:36 | WPDNEUROPN ---
Subjective Date/time seen: 12/20/22 12:36 Interval history: 22 years old right-handed female admitted to the ICU with history of seizure in addition to the Benadryl over does on intentional basis, improving mental status, negative CT scan of the head, elevated hepatic enzymes and CPK, on exam today awake alert cooperative in no obvious acute distress follow the verbal commands appropriately his speech nor dysphasic not dysarthric not dysphonic, extraocular movements full with no nystagmus face symmetrical, tongue midline, motor examination revealed normal strength in upper and lower extremities with symmetrical reflexes. Treatment is being continued as such as she will need the repeat CPK. Objective Data Vital Signs Vital Signs: Vital Signs - 24 hr 12/19/22 14:00 12/19/22 15:23 12/19/22 16:00 Temperature 36.6 C Pulse Rate 107 H 74 15 L Respiratory Rate 18 70 H Blood Pressure 116/60 Pulse Oximetry 98 98 Oxygen Delivery Room Air 12/19/22 16:00 12/19/22 18:00 12/19/22 20:00 Temperature Pulse Rate 72 93 76 Respiratory Rate Blood Pressure Pulse Oximetry Oxygen Delivery 12/19/22 20:00 12/19/22 20:00 12/19/22 22:00 Temperature 37.2 C Pulse Rate 76 78 Respiratory Rate 21 H Blood Pressure 112/80 Pulse Oximetry 97 Oxygen Delivery Room Air 12/19/22 23:59 12/20/22 00:00 12/20/22 02:00 Temperature Pulse Rate 77 69 Respiratory Rate Blood Pressure Pulse Oximetry Oxygen Delivery Room Air 12/20/22 00:00 12/20/22 04:00 12/20/22 04:00 Temperature 36.6 C Pulse Rate 77 67 51 L Respiratory Rate 15 14 Blood Pressure 110/65 138/85 Pulse Oximetry 98 95 Oxygen Delivery 12/20/22 04:00 12/20/22 06:00 12/20/22 08:00 Temperature Pulse Rate 59 L 51 L Respiratory Rate Blood Pressure Pulse Oximetry Oxygen Delivery Room Air 12/20/22 08:00 12/20/22 09:51 Temperature 36.6 C Pulse Rate 88 90 Respiratory Rate 15 Blood Pressure 131/85 Pulse Oximetry 100 Oxygen Delivery Intake/Output Intake/Output: Intake & Output 12/17/22 12/18/22 12/19/22 12/20/22 23:59 23:59 23:59 23:59 Intake Total 3020 4300 3820 2195 Output Total 2895 2030 1000 3900 Balance 125 2270 2820 -1705 Meds/Results Medications: Active Medications Generic Name Dose Route Start Last Admin Trade Name Freq PRN Reason Stop Dose Admin Acetaminophen 650 mg 12/16/22 18:39 12/17/22 15:38 Acetaminophen 325 Mg Tablet PO 650 mg Q4H PRN Administration Fever > 100.4 Lactated Ringer's 1,000 mls @ 150 mls/hr 12/17/22 13:00 12/20/22 08:13 Lr - Lactated Ringers Iv IV CONT 150 mls/hr .Q6H40M ANTHONY Administration Levetiracetam 500 mg 12/19/22 21:00 12/20/22 08:12 Levetiracetam 500 Mg Tablet PO 500 mg Q12HR ANTHONY Administration Lorazepam 4 mg 12/16/22 13:56 Lorazepam Inj (*Crx) 2 Mg/Ml Vial IV PUSH ONCE PRN Seizure Activity Ondansetron HCl 4 mg 12/16/22 13:38 Ondansetron Inj 4 Mg/2 Ml Vial IV PUSH Q4H PRN Nausea Radiology Results: ITS Impressions Head CT 12/16/22 10:51 Impression: No significant abnormality seen. Chest X-Ray 12/18/22 07:43 IMPRESSION: 1. No acute cardiopulmonary abnormality. Labs Labs: Laboratory Results - last 24 hr 12/19/22 12/20/22 19:55 03:40 WBC 8.1 RBC 4.50 Hgb 10.6 L Hct 32.9 L MCV 73.1 L MCH 23.6 L MCHC 32.2 RDW 14.3 Plt Count 245 MPV 13.2 H Immature Gran % (Auto) 0.2 Neut % (Auto) 58.0 Lymph % (Auto) 32.3 Hall % (Auto) 5.2 Eos % (Auto) 3.9 Baso % (Auto) 0.4 Lymph # (Auto) 2.62 Hall # (Auto) 0.4 Eos # (Auto) 0.3 Baso # (Auto) 0.0 Abs Immat Gran (auto) 0.02 Absolute Neuts (auto) 4.7 Absolute Nucleated RBC 0.0 Nucleated RBC % 0.0 % Immature Plt Fraction 5.8 Sodium 137 Potassium 3.7 Chloride 106 Carbon Dioxide 26 Anion Gap 5 L BUN 4 L Creatinine 0.50 L
--- NOTE | 2022-12-20 14:00 | PM.IMPN ---
Progress Note: A&P Assessment and Plan (1) Rhabdomyolysis: Code(s): M62.82 - Rhabdomyolysis Status: Acute Assessment and Plan: Creatine kinase >92766 secondary to seizures and laying on the floor. Renal function remains normal. UA with no blood. Elevated AST/ALT related to rhabdomyolysis TCK level and LFTs trending down now Continue IV fluids Lasix IV once Continue to monitor CK levels and LFTs (2) Intentional diphenhydramine poisoning: Qualifiers: Encounter type: initial encounter Qualified Code(s): T45.0X2A - Poisoning by antiallergic and antiemetic drugs, intentional self-harm, initial encounter Code(s): T45.0X2A - Poisoning by antiallergic and antiemetic drugs, intentional self-harm, initial encounter Status: Acute Assessment and Plan: Patient admitted to taking 30 pills of Benadryl although empty 100 pill bottle was found in her car along with a note that appears to be a suicide note. The timing of pill ingestion is unknown although the note was timed at 9:22 p.m. the night before. Clinical picture consistent with diphenhydramine poisoning (retention, dry mouth, mydriasis, tachycardia, seizures) ABG 7.35/28/48 on room air on admission. Now on room air. No need to repeat ABG EKG reviewed and shows normal QTC and QRS; repeat EKG again showing normal QTc and QRS IV fluids for rhabdo Patient received Keppra for seizures which is being continued Suicide and seizure precaution Valle removed and voiding well now. Patient is clinically improved Continue supportive care (3) Generalized seizure: Code(s): R56.9 - Unspecified convulsions Status: Acute Assessment and Plan: Patient had 2 witnessed seizures at home. Secondary to diphenhydramine toxicity Patient was given Keppra loading dose in the ER and continued CT Brain was unremarkable Neurology was consulted and appreciate their input Seizure precautions Continue Keppra while hospitalized but stop as discharge unless she has further seizures P.r.n. Ativan available (4) Fever: Code(s): R50.9 - Fever, unspecified Status: Acute Assessment and Plan: She was having low grade fever. CXR clear on admission. UA showing proteinuria but probably related to the seizure o/w urine clear. WBC 17K on admission but WBC normal now. She was obtunded with seizure so we considered aspiration PNA but repeat CXR still clear. Fever free x 48 hours now. Follow. (5) Encephalopathy: Code(s): G93.40 - Encephalopathy, unspecified Status: Acute Assessment and Plan: Patient was altered on admission. Brain CT showing no acute intracranial abnormalities Patient is alert and oriented now [place] related to being post-ictal from the seizures and from the Benadryl Resolved. Continue to monitor (6) Lactic acidosis: Code(s): E87.20 - Acidosis, unspecified Status: Acute Assessment and Plan: lactic acid 4.1 likely secondary to seizures. Resolved with IV fluids (7) Suicide attempt: Code(s): T14.91XA - Suicide attempt, initial encounter Status: Acute Assessment and Plan: Suicide precautions and one-to-one sitter Care coordination to arrange for inpatient psychiatric placement once TCK level improved (8) Hypoxia: Code(s): R09.02 - Hypoxemia Status: Acute Assessment and Plan: Initial ABG showed hypoxia related to above. chest x-ray was negative for any signs of aspiration Repeat CXR remains clear Patient currently on room air. Resolved Plan DVT prophylaxis -SCDs Code Status - Full Code Diet - regular Subjective Date/time seen: 12/20/22 14:00 Interval history: 22yo healthy female here for intentional Benadryl overdose and provoked seizures. No Complaints. No CP/SOB/n/v. Exam Narrative: AF 98.0 131/85 110 15 100% ra Gen - NARD Chest - few basilar crackles. CV - RRR S1/S2. Tele showing occa
[2022-12-21] VITALS (8 sets, daily range): BP systolic 102–123; BP diastolic 59–91; PULSE 50–80; RESP 11–16; TEMP 36.7–37; O2SAT 96–100
[2022-12-21 04:16] LABS: Basophils Percent Auto 0.4 % (0.2-1.2); Eosinophils Absolute Auto 0.3 K/mm3 (0-0.3); Eosinophils Percent Auto 3.5 % (0-4.4); Hematocrit 34.1 % (37.0-47.0); Hemoglobin 10.8 g/dL (12.0-15.0); Immature Granulocyte Absolute 0.01 K/mm3 (0.00-0.031); Immature Granulocyte Percent A 0.1 % (0-0.5); Lymphocytes Absolute Auto 2.74 K/mm3 (0.9-3.2); Lymphocytes Percent Auto 33.3 % (18.3-44.2); Mean Corpuscular HGB Conc 31.7 g/dl (32-36); Mean Corpuscular Hemoglobin 23.3 pg (26-34); Mean Corpuscular Volume 73.7 fl (80-100); Monocytes Absolute Auto 0.5 K/mm3 (0.1-0.6); Monocytes Percent Auto 5.7 % (2.6-8.5); Neutrophils Absolute Auto 4.7 K/mm3 (1.3-6.7); Platelet Count Result 309 k/mm3 (150-375); Red Blood Count 4.63 M/mm3 (4.2-5.4); Red Cell Distribution Width 14.2 % (11.5-14.5); White Blood Count 8.2 K/mm3 (4.5-10.0)
[2022-12-21 04:30] LABS: Alanine Aminotransferase 48 U/L (6-35); Albumin Level 3.8 g/dL (3.5-5.1); Alkaline Phosphatase 63 U/L (38-126); Anion Gap 1 mmol/L (8-16); Aspartate Amino Transferase 66 U/L (14-36); Bilirubin,Total 0.5 mg/dL (0.2-1.3); Blood Urea Nitrogen 3 mg/dL (7-17); Calcium 8.9 mg/dL (8.4-10.2); Carbon Dioxide 32 mmol/L (22-30); Chloride 104 mmol/L (98-107); Estimated CRCL calculation 136 ml/min; Estimated Glomerular Filt Rate > 60; Glucose 89 mg/dL (65-110); Magnesium 1.6 mg/dL (1.6-2.3); Potassium 3.8 mmol/L (3.4-5.0); Sodium 137 mmol/L (137-145)
[2022-12-21 04:59] LABS: Creatine Kinase 2150 U/L (30-135)
[2022-12-21] MEDS: levETIRAcetam 500 MG TABLET PO ×2 (08:26→20:33)
[2022-12-21] MEDS: FUROSEMIDE INJ 40 MG/4 ML VIAL 20 MG IV PUSH (08:27)
[2022-12-21 08:44] LABS: Appearance Urine Clear (Clear); Bilirubin Urine Negative (Negative); Blood Urine Negative (Negative); Color Urine Yellow (Yellow); Glucose Urine UA Negative (Negative); Ketones Urine Negative (Negative); Leukocyte Esterase Ur Negative LEU/UL (NEGATIVE); Nitrate Urine Negative (Negative); Protein Urine Negative (Negative); Specific Grav Ur 1.007 (1.001-1.035); Urobilinogen Urine 0.2 mg/dL (<2.0); pH Urine 8.5 (5.0-9.0)
[2022-12-21 08:45] LABS: Add Urine Microscopic? NO
[2022-12-21] MEDS: LACTATED RINGERS 1,000 ML 150 ML IV CONT (12:07)
--- NOTE | 2022-12-21 12:46 | PM.IMPN ---
Progress Note: A&P Assessment and Plan (1) Rhabdomyolysis: Code(s): M62.82 - Rhabdomyolysis Status: Acute Assessment and Plan: Creatine kinase >77781 secondary to seizures and laying on the floor. Renal function remains normal. UA with no blood. Elevated AST/ALT related to rhabdomyolysis TCK level and LFTs trending down now Repeat UA today clear without RBC or Blood Positive fluid balance and low urine SG so will stop IV fluids Repeat Lasix IV once Continue to monitor CK levels (2) Intentional diphenhydramine poisoning: Qualifiers: Encounter type: initial encounter Qualified Code(s): T45.0X2A - Poisoning by antiallergic and antiemetic drugs, intentional self-harm, initial encounter Code(s): T45.0X2A - Poisoning by antiallergic and antiemetic drugs, intentional self-harm, initial encounter Status: Acute Assessment and Plan: Patient admitted to taking 30 pills of Benadryl although empty 100 pill bottle was found in her car along with a note that appears to be a suicide note. The timing of pill ingestion is unknown although the note was timed at 9:22 p.m. the night before. Clinical picture consistent with diphenhydramine poisoning (urine retention, dry mouth, mydriasis, tachycardia, seizures) ABG 7.35/28/48 on room air on admission. Now on room air. No need to repeat ABG EKG reviewed and shows normal QTC and QRS; repeat EKG again showing normal QTc and QRS IV fluids for rhabdo Patient received Keppra for seizures which is being continued Suicide and seizure precaution Valle removed and voiding well now. Patient is clinically improved Continue supportive care (3) Generalized seizure: Code(s): R56.9 - Unspecified convulsions Status: Acute Assessment and Plan: Patient had 2 witnessed seizures at home. Secondary to diphenhydramine toxicity Patient was given Keppra loading dose in the ER and continued CT Brain was unremarkable Neurology was consulted and appreciate their input Seizure precautions Continue Keppra while hospitalized but stop as discharge unless she has further seizures P.r.n. Ativan available (4) Fever: Code(s): R50.9 - Fever, unspecified Status: Acute Assessment and Plan: She was having low grade fever. CXR clear on admission. UA showing proteinuria but probably related to the seizure o/w urine clear. WBC 17K on admission but WBC normal now. She was obtunded with seizure so we considered aspiration PNA but repeat CXR still clear. Fever free now. Follow. (5) Encephalopathy: Code(s): G93.40 - Encephalopathy, unspecified Status: Acute Assessment and Plan: Patient was altered on admission. Brain CT showing no acute intracranial abnormalities Patient is alert and oriented now [place] related to being post-ictal from the seizures and from the Benadryl Resolved. Continue to monitor (6) Lactic acidosis: Code(s): E87.20 - Acidosis, unspecified Status: Acute Assessment and Plan: lactic acid 4.1 likely secondary to seizures. Resolved with IV fluids (7) Suicide attempt: Code(s): T14.91XA - Suicide attempt, initial encounter Status: Acute Assessment and Plan: Suicide precautions and one-to-one sitter Care coordination to arrange for inpatient psychiatric placement now (8) Hypoxia: Code(s): R09.02 - Hypoxemia Status: Acute Assessment and Plan: Initial ABG showed hypoxia related to above. chest x-ray was negative for any signs of aspiration Repeat CXR remains clear Patient currently on room air. Resolved Plan DVT prophylaxis -SCDs Code Status - Full Code Diet - regular Subjective Date/time seen: 12/21/22 12:46 Interval history: 22yo healthy female here for intentional Benadryl overdose and provoked seizures. No problems overnight. No complaints today. Exam Narrative: AF 98.1 123/91 76 15 96% ra Gen
--- NOTE | 2022-12-21 15:25 | PC.NURSE ---
Crisis in to evaluate patient
[2022-12-21 16:08] LABS: SARS-CoV-2 RNA PCR Negative (Negative)
--- NOTE | 2022-12-21 23:53 | PC.NURSE ---
Report given to WAQAR Wiseman at [facility].
--- NOTE | 2022-12-21 23:56 | PC.NURSE ---
Attempted to notify mother of patients planned transfer. No answer, message left to return call for update.
[2022-12-22] VITALS: BP 121/72; PULSE 78; RESP 18; TEMP 36.9; O2SAT 100
[2022-12-22 02:34] VITALS: BP 129/75; PULSE 80; RESP 18; O2SAT 100
--- NOTE | 2022-12-22 02:45 | PC.NURSE ---
[facility] at bedside to transfer patient to [facility] room 162D
--- NOTE | 2022-12-22 02:49 | PC.NURSE ---
Notified WAQAR Wiseman at [facility] of patient transfer.
--- NOTE | 2022-12-29 06:50 | PM.TDS ---
Transfer Discharge Sum: Prov Provider Date of admission: 12/18/22 13:56 Primary care physician: FITO MONIQUE, [employer] [facility] Admitting clinician: Scott Giordano MD Consults: 12/16/22 Consult to Physician Routine Comment: Consulting Provider: Simeon Hair Reason for consultation: Suspected Benadryl overdose, seizure Has provider been notified: Yes Consult to Physician Routine Comment: Consulting Provider: Sierra Case Reason for consultation: seizure Has provider been notified: Yes 12/21/22 Care Coordination Consult Routine Comment: Reason for Consult:: Crisis Intervention DS: Admitting Diagnosis Discharge Date 12/22/22 Admitting Diagnosis Intentional Benadryl overdose and provoked seizures DS: Discharge Diagnosis Discharge Diagnosis (1) Rhabdomyolysis: Code(s): M62.82 - Rhabdomyolysis Status: Acute (2) Intentional diphenhydramine poisoning: Qualifiers: Encounter type: initial encounter Qualified Code(s): T45.0X2A - Poisoning by antiallergic and antiemetic drugs, intentional self-harm, initial encounter Code(s): T45.0X2A - Poisoning by antiallergic and antiemetic drugs, intentional self-harm, initial encounter Status: Acute (3) Generalized seizure: Code(s): R56.9 - Unspecified convulsions Status: Acute (4) Fever: Code(s): R50.9 - Fever, unspecified Status: Acute (5) Encephalopathy: Code(s): G93.40 - Encephalopathy, unspecified Status: Acute (6) Lactic acidosis: Code(s): E87.20 - Acidosis, unspecified Status: Acute (7) Suicide attempt: Code(s): T14.91XA - Suicide attempt, initial encounter Status: Acute (8) Hypoxia: Code(s): R09.02 - Hypoxemia Status: Acute Transfer Discharge Sum: Med Medications Active and Home Medications: Home Medications No Home Medications 12/16/22 [History Confirmed 12/16/22] Transfer Discharge Sum: Hosp Hospital Course Hospital course: Kate Nichole is a 22yo healthy female here for intentional Benadryl overdose and provoked seizures. Please see H&P for details. Patient admitted to taking 30 pills of Benadryl although empty 100 pill bottle was found in her car along with a note that appears to be a suicide note.? The timing of pill ingestion is unknown although the note was timed at 9:22 p.m. the night before. Clinical picture was consistent with diphenhydramine poisoning (urine retention, dry mouth, mydriasis, tachycardia, seizures). ABG 7.35/28/48 on room air on admission. She required supplemental O2 but was weaned to room air. EKG reviewed and shows normal QTC and QRS; repeat EKG again showing normal QTc and QRS. Patient had 2 witnessed seizures at home felt secondary to diphenhydramine toxicity. Patient was given Keppra loading dose in the ER and continued while hospitalized. CT Brain was unremarkable. Neurology was consulted and appreciate their input. We instituted seizure precautions. Neurology recommended continuing Keppra while hospitalized but stop as discharge Creatine kinase >[id number] on admission secondary to seizures and laying on the floor. Renal function was normal and remained normal. UA with no blood. Elevated AST/ALT felt related to rhabdomyolysis. IV fluids started. Creatine kinase level and LFTs trended down. She tolerated the IV fluids. She was given intermittent doses of Lasix. Creatine kinase dropped to 2150. Repeat UA showing no blood. Lasix repeated. [place] safe to discharge since no blood and Creatine kinase trending down as expected. She did have urine retention but able to remove [place] and was voiding well. She was having low grade fever. CXR clear on admission. UA showing proteinuria but probably related to the seizure o/w urine was clear. WBC 17K on admission but WBC normalized. She was obtunded with seizure so we considered aspiration PNA but repeat CXR remained clear. Fevers resolved. Lactic acid 4.1 like
== END 2022-12-22 02:45 | disposition short-term general hospital (02) | DRG 917 ==
LOC: ANHED 13:45 → ANHICU 14:27
PROVIDERS: Internal Medicine; Admitting Provider Family Medicine; Emergency Provider Emergency Medicine; PCP Nurse Practitioner Family; Visit Provider Internal Medicine
DX: T45.0X2A Poisoning by antiallergic and antiemetic drugs, intentional self-harm, initial encounter (principal); G92.8 Other toxic encephalopathy; G40.89 Other seizures; E87.21 Acute metabolic acidosis; M62.82 Rhabdomyolysis; T14.91XA Suicide attempt, initial encounter; R09.02 Hypoxemia; F32.A Depression, unspecified; R80.8 Other proteinuria; R33.8 Other retention of urine
CPT/HCPCS: 36415; 36569; 36600; 70450; 71045; 80048; 80053; 80307; 81001; 81003; 81025; 82550; 82805; 82948; 83605; 83735; 84100; 85025; 85055; 85610; 85730; 93005; 96360; 96361; 96365; 96366; 96367; 99285; A9270; C1751; G0378; J1940; J1953; J7030; J7120; U0003; U0005